=== PATIENT | male | born 1995 | race Caucasian/White ===

== ENCOUNTER → 2025-07-01 | Emergency (ER) | payer MEDICAID ==
[~2025-07-01] VITALS: Ht 175.3 cm; Wt 86.4 kg
[2025-07-01] MEDS: ACETAMINOPHEN 500 MG TABLET PO ONE (04:58)
[2025-07-01] MEDS: IBUPROFEN 400 MG TABLET PO ONE (04:59)
[2025-07-01 05:25] LABS: PLATELET COUNT (AUTO) 266 K/uL (150-450); RED BLOOD CELL COUNT(AUTO) 4.49 MIL/uL (4.50-5.90); RED CELL DISTRIBUTION WIDTH 13.1 % (11.5-14.5); WHITE BLOOD COUNT (AUTO) 7.5 K/uL (4.5-11.0)
[2025-07-01 05:34] LABS: CALCIUM, TOTAL 8.4 mg/dL (8.8-10.5); CREATININE 0.78 mg/dL (0.60-1.30); GLOMERULAR FILTR. RATE CALC > 60 mL/min (>60); GLUCOSE,RANDOM 114 mg/dL (70-110); SODIUM SERUM 138 mmol/L (136-145); UREA NITROGEN, BLOOD 16 mg/dL (7-18)
[2025-07-01 05:40] LABS: ASPARTATE AMINOTRANSFERASE 29.0 U/L (15-37); TOTAL PROTEIN, SERUM 7.2 g/dL (6.4-8.2)
[2025-07-01 05:40] LABS: APPEARANCE,URINE CLEAR (CLEAR); GLUCOSE, URINE (UA) NEGATIVE (NEGATIVE); LEUKOCYTE ESTERASE ,URINE NEGATIVE (NEGATIVE); NITRATE,URINE NEGATIVE (NEGATIVE); OCCULT BLOOD,URINE NEGATIVE (NEGATIVE); SPECIFIC GRAVITIY, URINE 1.022 (1.003-1.030)
[2025-07-01 06:00] VITALS: BP 133/74; PULSE 79; RESP 16; TEMP 97.3; O2SAT 99
== END | disposition still patient (30) ==
LOC: EMS 03:48
DX: R10.9 Unspecified abdominal pain (principal); R11.2 Nausea with vomiting, unspecified; Z88.8 Allergy status to other drugs, medicaments and biological substances
CPT/HCPCS: 74176; 80048; 80076; 81003; 83690; 85025; 99284